=== PATIENT | male | born 1985 | race Caucasian/White ===

== ENCOUNTER 2020-09-07 00:31 | Emergency (ER) | payer OTHER ==
[~2020-09-07 00:31] MED LIST: BENTYL 20MG TAB20 MG PO; IBUPROFEN600 MG PO; ZOFRAN4 MG PO
[2020-09-07 02:57] LABS: HEMOGLOBIN 13.8 gm/dl (14.0-17.5); RED BLOOD COUNT 5.16 M/UL (4.20-5.50); WHITE BLOOD COUNT 13.5 K/UL (4.5-11.0)
[2020-09-07 03:18] LABS: BUN/CREATININE RATIO 16 (0-10)
[2020-09-07] MEDS ORDERED: IBUPROFEN800 MG PO (04:08)
[2020-09-07] MEDS ORDERED: CYCLOBENZAPRINE10 MG PO (04:08)
[2020-09-09 21:12] LABS: CHLAMYDIA TRACHOMATIS, NAA Negative (Negative); NEISSERIA GONORRHOEAE, NAA Negative (Negative)
== END 2020-09-07 05:04 | disposition home or self-care (01) ==
LOC: ER1 00:31
PROVIDERS: Physician Assistant
DX: M51.36 Other intervertebral disc degeneration, lumbar region (principal); I10 Essential (primary) hypertension; E66.9 Obesity, unspecified; Z90.89 Acquired absence of other organs
CPT/HCPCS: 72131; 80053; 81001; 85025; 86140; 87086; 96372; 99284; J1885